=== PATIENT | female | born 2000 | race Two or more races ===

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

== ENCOUNTER 2021-10-04 08:31 | Observation (INO) | payer MEDICAID ==
[2021-10-04] MEDS ORDERED: PREN-96 PO (14:24)
== END 2021-10-04 14:36 | disposition home or self-care (01) ==
LOC: LDRP 13:30
PROVIDERS: ADMIT Obstetrics & Gynecology; ATTEND Obstetrics & Gynecology
DX: O24.419 Gestational diabetes mellitus in pregnancy, unspecified control (principal); Z3A.30 30 weeks gestation of pregnancy
CPT/HCPCS: 59025; 76818; 81002; 82948; 82962; 94760; G0378

== ENCOUNTER 2021-10-11 09:39 | Observation (INO) | payer MEDICAID ==
[~2021-10-11 09:39] MED LIST: PREN-96 PO
== END 2021-10-11 15:07 | disposition home or self-care (01) ==
LOC: LDRP 13:00
PROVIDERS: ADMIT Obstetrics & Gynecology; ATTEND Obstetrics & Gynecology
DX: O24.419 Gestational diabetes mellitus in pregnancy, unspecified control (principal); Z3A.31 31 weeks gestation of pregnancy
CPT/HCPCS: 59025; 76818; 81002; 82948; 82962; 94760; G0378

== ENCOUNTER 2021-10-17 08:10 | Observation (INO) | payer MEDICAID | END 2021-10-17 16:08 | disposition home or self-care (01) | LOC: LDRP 13:30 → UNDODISOB 16:08 | PROVIDERS: ADMIT Obstetrics & Gynecology; ATTEND Obstetrics & Gynecology | DX: O24.419 Gestational diabetes mellitus in pregnancy, unspecified control (principal); Z3A.31 31 weeks gestation of pregnancy | CPT/HCPCS: 59025; 76818; 81002; 82948; 82962; G0378 ==

== ENCOUNTER 2021-10-24 09:59 | Observation (INO) | payer MEDICAID | END 2021-10-24 17:00 | disposition home or self-care (01) | LOC: LDRP 14:00 | PROVIDERS: ADMIT Obstetrics & Gynecology; ATTEND Obstetrics & Gynecology | DX: O24.419 Gestational diabetes mellitus in pregnancy, unspecified control (principal); Z3A.32 32 weeks gestation of pregnancy | CPT/HCPCS: 59025; 76818; 81002; 82948; 82962; 94760; G0378 ==

== ENCOUNTER 2021-10-31 15:08 | Observation (INO) | payer MEDICAID | END 2021-11-07 15:10 | disposition home or self-care (01) | LOC: LDRP 11-07 13:00 | PROVIDERS: ADMIT Obstetrics & Gynecology; ATTEND Obstetrics & Gynecology | DX: O24.419 Gestational diabetes mellitus in pregnancy, unspecified control (principal); Z3A.34 34 weeks gestation of pregnancy | CPT/HCPCS: 59025; 76818; 81002; 82962; 94760; G0378 ==

== ENCOUNTER 2021-11-14 09:09 | Observation (INO) | payer MEDICAID | END 2021-11-14 14:59 | disposition home or self-care (01) | LOC: LDRP 12:55 | PROVIDERS: ADMIT Obstetrics & Gynecology; ATTEND Obstetrics & Gynecology | DX: O24.419 Gestational diabetes mellitus in pregnancy, unspecified control (principal); Z3A.35 35 weeks gestation of pregnancy | CPT/HCPCS: 59025; 76818; 81002; 82948; 82962; 94760; G0378 ==

== ENCOUNTER 2021-11-21 08:43 | Observation (INO) | payer MEDICAID ==
[~2021-11-21] VITALS: Ht 157.5 cm; Wt 80.3 kg
== END 2021-11-21 16:04 | disposition home or self-care (01) ==
LOC: LDRP 14:09
PROVIDERS: ADMIT Obstetrics & Gynecology; ATTEND Obstetrics & Gynecology
DX: O24.419 Gestational diabetes mellitus in pregnancy, unspecified control (principal); Z3A.36 36 weeks gestation of pregnancy
CPT/HCPCS: 59025; 76818; 81002; 82948; 82962; 94760; G0378

== ENCOUNTER 2021-11-28 07:12 | Observation (INO) | payer MEDICAID ==
[2021-11-28] MEDS ORDERED: LACTATED RINGER'S 1,000 ML IV ONE (14:00)
== END 2021-11-28 16:07 | disposition home or self-care (01) ==
LOC: LDRP 11:15
PROVIDERS: ADMIT Obstetrics & Gynecology; ATTEND Obstetrics & Gynecology
DX: O24.419 Gestational diabetes mellitus in pregnancy, unspecified control (principal); Z3A.37 37 weeks gestation of pregnancy
CPT/HCPCS: 59025; 76818; 81002; 82948; 82962; 94760; G0378; 96360

== ENCOUNTER 2021-11-29 07:14 | Observation (INO) | payer MEDICAID | END 2021-11-29 07:55 | disposition still patient (30) | LOC: LDRP 07:14 | PROVIDERS: ADMIT Obstetrics & Gynecology; ATTEND Obstetrics & Gynecology | DX: O24.419 Gestational diabetes mellitus in pregnancy, unspecified control (principal); Z3A.38 38 weeks gestation of pregnancy | CPT/HCPCS: 59025; 81002; 94760; G0378 ==

== ENCOUNTER 2021-12-05 13:00 | Observation (INO) | payer MEDICAID | END 2021-12-05 14:35 | disposition home or self-care (01) | LOC: LDRP 13:00 | PROVIDERS: ADMIT Obstetrics & Gynecology; ATTEND Obstetrics & Gynecology | DX: O24.419 Gestational diabetes mellitus in pregnancy, unspecified control (principal); Z3A.38 38 weeks gestation of pregnancy | CPT/HCPCS: 59025; 76818; 82948; 82962; 94760; G0378 ==

== ENCOUNTER 2021-12-12 10:37 | Observation (INO) | payer MEDICAID | END 2021-12-12 16:50 | disposition home or self-care (01) | LOC: LDRP 14:43 | PROVIDERS: ADMIT Obstetrics & Gynecology; ATTEND Obstetrics & Gynecology | DX: O24.419 Gestational diabetes mellitus in pregnancy, unspecified control (principal); O26.893 Other specified pregnancy related conditions, third trimester; N89.8 Other specified noninflammatory disorders of vagina; Z3A.39 39 weeks gestation of pregnancy | CPT/HCPCS: 59025; 76818; 81002; 82948; 82962; 94760; G0378 ==

== ENCOUNTER 2021-12-14 08:53 | Observation (INO) | payer MEDICAID | END 2021-12-14 10:50 | disposition home or self-care (01) | LOC: LDRP 09:00 | PROVIDERS: ADMIT Obstetrics & Gynecology; ATTEND Obstetrics & Gynecology | DX: O24.419 Gestational diabetes mellitus in pregnancy, unspecified control (principal); Z3A.40 40 weeks gestation of pregnancy | CPT/HCPCS: 59025; 76818; 81002; 82948; 82962; 94760; G0378 ==

== ENCOUNTER 2021-12-16 10:47 | Observation (INO) | payer MEDICAID | END 2021-12-16 13:55 | disposition home or self-care (01) | LOC: LDRP 10:47 | PROVIDERS: ADMIT Obstetrics & Gynecology; ATTEND Obstetrics & Gynecology | DX: O62.9 Abnormality of forces of labor, unspecified (principal); O48.0 Post-term pregnancy; Z3A.40 40 weeks gestation of pregnancy; Z79.899 Other long term (current) drug therapy | CPT/HCPCS: 59025; 76818; 81002; 82948; 82962; 94762; G0378 ==

== ENCOUNTER 2021-12-17 12:43 | Inpatient (IN) | payer MEDICAID ==
[~2021-12-17] VITALS: Ht 157.5 cm; Wt 80.3 kg
[2021-12-17] MEDS: ACCU-CHEK COMFORT CURVE STRIP VI SCH ×3 (07:00→22:02)
[2021-12-17] MEDS ORDERED: CARBOPROST TROMETHAMINE 250 MCG/1ML VIAL IM PRN (13:15)
[2021-12-17] MEDS ORDERED: OXYTOCIN 10UNIT/ML 1ML VIAL IM ONE (13:15)
[2021-12-17] MEDS ORDERED: LIDOCAINE 2%HCL (LOCAL ANESTH.) INJ 10ml MDV IJ PRN (13:15)
[2021-12-17] MEDS ORDERED: METHYLERGONOVINE MALEATE 0.2 MG/ML AMP IM PRN (13:15)
[2021-12-17] MEDS ORDERED: miSOPROStol 100 mcg TAB PR PRN (13:15)
[2021-12-17] MEDS ORDERED: OXYTOCIN 20 UNT in SODIUM CHLORIDE 0.9% 1,000 ML IV ONE (13:15)
[2021-12-17] MEDS ORDERED: DERMOPLAST 60ML BOTTLE TOP PRN (13:15)
[2021-12-17] MEDS ORDERED: miSOPROStol 100 mcg TAB SL PRN (13:15)
[2021-12-17] MEDS ORDERED: WITCH HAZEL-GLYCERIN PAD TOP PRN (13:15)
[2021-12-17] MEDS ORDERED: BUTORPHANOL TARTRATE 2 MG/1 ML VIAL IV PRN ×2 (13:15)
[2021-12-17] MEDS ORDERED: PROMETHAZINE HCL 25 MG/ML 1ML IV PRN (13:15)
[2021-12-17] MEDS ORDERED: PHISODERM TOP SOLN 240ML BTL TOP PRN (13:15)
[2021-12-17] MEDS ORDERED: TERBUTALINE SULFATE 1 MG/ML 1ML VIAL SC PRN (13:15)
[2021-12-17 14:21] LABS: Basophils # (auto) 0 10 ^3/uL (0-0.2); Basophils % (auto) 0.4 % (0.0-2.0); Eosinophils # (auto) 0.1 10 ^3/uL (0-0.8); Eosinophils % (auto) 1.5 % (0.0-7.0); Hematocrit 35.5 % (36.0-46.0); Hemoglobin 12.1 g/dL (12.2-16.2); Lymphocytes # (auto) 1.2 10 ^3/uL (0.4-5.4); Lymphocytes % (auto) 12.4 % (10.0-50.0); Mean Corpuscular Hgb Conc. 34.1 g/dL (32.0-36.0); Mean Corpuscular Volume 85.1 fL (80.0-100.0); Monocytes # (auto) 0.6 10 ^3/uL (0-1.3); Monocytes % (auto) 6.3 % (0.0-12.0); Neutrophils # (auto) 7.8 10 ^3/uL (1.6-8.6); Neutrophils % (auto) 79.4 % (37.0-80.0); Red Blood Cells 4.18 10^6/uL (4.0-5.20); Red Cell Distribution Width 14.4 % (11.8-14.3); White Blood Cell 9.8 10^3/uL (4.4-10.8)
[2021-12-17 14:30] LABS: Albumin 2.8 g/dL (3.4-5.0); Calcium 8.9 mg/dL (8.5-10.1)
[2021-12-17 14:35] LABS: BUN/Creatinine Ratio 18.5; Bilirubin, Total 0.2 mg/dL (0.2-1.0); Total Protein 6.9 g/dL (6.4-8.2)
[2021-12-17 14:38] LABS: INR 0.94 (0.9-1.15); Partial Thromboplastin Time 25.3 sec (23.6-33.0)
[2021-12-17 14:44] LABS: Alcohol, Urine < 3.0 mg/dL (0-10); Amphetamine Screen, Urine NEGATIVE (NEGATIVE); Barbiturate Scree,Urine NEGATIVE (NEGATIVE); Benzodiazephine Screen, Urine NEGATIVE (NEGATIVE); Cannabinoid Screen, Urine NEGATIVE (NEGATIVE); Cocaine Screen, Urine NEGATIVE (NEGATIVE); Opiate Scree,Urine NEGATIVE (NEGATIVE); Phencyclidine Screen, Urine NEGATIVE (NEGATIVE)
[2021-12-17] MEDS ORDERED: PENICILLIN G POT 5MIL/D5 50ML 50 ML IV ONE (15:15)
[2021-12-17] MEDS: LACTATED RINGER'S 1,000 ML IV SCH ×2 (15:22→22:59)
[2021-12-17 17:22] LABS: Urine Specific Gravity 1.035 (1.001-1.035)
[2021-12-17 17:23] LABS: Urine Blood Negative /uL (Negative)
[2021-12-17 17:28] LABS: Urine WBC 0-10 /hpf (0 - 5)
[2021-12-17 17:29] LABS: Urine WBC Clumps None Seen /hpf (None Seen)
[2021-12-17 17:30] LABS: Urine Bacteria 1+ /hpf (None Seen); Urine Mucus MODERATE (None Seen)
[2021-12-17] MEDS ORDERED: miSOPROStol 50 MCG per PRE-CUT 1/2 TAB PO PRN (17:55)
[2021-12-17] MEDS: PENICILLIN G POTASSIUM 2,500,000 UNITS in D5W 5% 50 ML IV SCH ×2 (19:03→23:25)
[2021-12-18] MEDS: ACCU-CHEK COMFORT CURVE STRIP VI SCH ×6 (02:34→22:00)
[2021-12-18] MEDS: LACT. RINGERS/OXYTOCIN 20UNITS 1,000 ML IV SCH ×3 (03:41→12:19)
[2021-12-18] MEDS: PENICILLIN G POTASSIUM 2,500,000 UNITS in D5W 5% 50 ML IV SCH ×3 (04:48→14:51)
[2021-12-18] MEDS ORDERED: ePHEDrine SULFATE 50 MG/ML AMP IV ONE (07:00)
[2021-12-18] MEDS ORDERED: LACTATED RINGER'S 1,000 ML IV ONE (07:00)
[2021-12-18] MEDS ORDERED: LIDOCAINE HCL 2 %PF INJ 10ML AMP IJ ONE ×3 (07:00→19:00)
[2021-12-18] MEDS ORDERED: fentaNYL CITRATE 100 MCG/2 ML VL IV ONE (07:00)
[2021-12-18] MEDS ORDERED: NALOXONE HCL 0.4 MG/ML VIAL IV ONE (07:00)
[2021-12-18] MEDS ORDERED: ROPIVACAINE HCL 200 ML EPI SCH (07:00)
[2021-12-18] MEDS ORDERED: D5W/LACTATED RINGERS 1,000 ML IV ONE (07:45)
[2021-12-18] MEDS: ACETAMINOPHEN 325 MG TAB PO PRN (12:42)
[2021-12-18] MEDS ORDERED: SODIUM CHLORIDE 0.9% 1,000 ML IUPC SCH (14:30)
[2021-12-18] MEDS ORDERED: SODIUM CHLORIDE 0.9% 300 ML IUPC ONE (14:30)
[2021-12-18] MEDS ORDERED: TRANEXAMIC ACID 10 ML ONE (16:23)
[2021-12-18] MEDS ORDERED: ceFAZolin 1GM/50ML 50 ML IV ONE ×2 (16:30→21:15)
[2021-12-18 17:01] LABS: Basophils # (auto) 0.1 10 ^3/uL (0-0.2); Basophils % (auto) 0.5 % (0.0-2.0); Eosinophils # (auto) 0.1 10 ^3/uL (0-0.8); Eosinophils % (auto) 0.9 % (0.0-7.0); Hematocrit 38.1 % (36.0-46.0); Hemoglobin 12.3 g/dL (12.2-16.2); Lymphocytes # (auto) 1.5 10 ^3/uL (0.4-5.4); Lymphocytes % (auto) 12.4 % (10.0-50.0); Mean Corpuscular Hemoglobin 27.7 pg (28.0-32.0); Mean Corpuscular Hgb Conc. 32.3 g/dL (32.0-36.0); Mean Corpuscular Volume 85.7 fL (80.0-100.0); Monocytes # (auto) 0.7 10 ^3/uL (0-1.3); Monocytes % (auto) 6.2 % (0.0-12.0); Neutrophils # (auto) 9.4 10 ^3/uL (1.6-8.6); Nucleated Red Blood Cells % 0.1 %; Red Blood Cells 4.45 10^6/uL (4.0-5.20); Red Cell Distribution Width 14.7 % (11.8-14.3); White Blood Cell 11.7 10^3/uL (4.4-10.8)
[2021-12-18 17:12] LABS: Albumin 2.7 g/dL (3.4-5.0); BUN/Creatinine Ratio 7.3; Calcium 8.5 mg/dL (8.5-10.1); Potassium 4.2 mmol/L (3.5-5.1)
[2021-12-18 17:15] LABS: Bilirubin, Total 0.3 mg/dL (0.2-1.0); Total Protein 6.5 g/dL (6.4-8.2)
[2021-12-18 17:36] LABS: INR 0.95 (0.9-1.15); Partial Thromboplastin Time 26.2 sec (23.6-33.0)
[2021-12-18] MEDS ORDERED: MORPHINE SULF PF 5 MG/10 ML VIAL ONE (18:18)
[2021-12-18] MEDS ORDERED: SODIUM BICARBONATE 8.4 % INJ 50ML VIAL IV ONE (18:20)
[2021-12-18] MEDS ORDERED: ONDANSETRON HCL 4 MG/2 ML VIAL ONE (18:20)
[2021-12-18] MEDS ORDERED: oxyTOCIN 10 UNIT/ML 10ML VIAL ONE (18:20)
[2021-12-18] MEDS ORDERED: fentaNYL CITRATE 100 MCG/2 ML VL ONE (18:20)
[2021-12-18] MEDS ORDERED: SODIUM CHLORIDE LOCK 10 ML ONE (18:20)
[2021-12-18] MEDS ORDERED: MIDAZOLAM HCL 2MG/2ML 2ml VIAL (1mg/ml) ONE (18:20)
[2021-12-18] MEDS ORDERED: EPINEPHrine HCL 1 MG/1 ML AMP ONE (18:20)
[2021-12-18] MEDS ORDERED: DexAMETHasone SOD PHOS 10MG/1ML VIAL INJ ONE (19:05)
[2021-12-18 20:00] VITALS: BP 126/81
[2021-12-18] MEDS ORDERED: HYDROmorphone HCL 2 MG/ML VL/or syr IV PRN (20:45)
[2021-12-18] MEDS ORDERED: NALOXONE HCL 0.4 MG/ML VIAL IV PRN (20:45)
[2021-12-18] MEDS ORDERED: METOCLOPRAMIDE HCL 5MG/ml INJ 2ml VIAL IV PRN (20:45)
[2021-12-18] MEDS ORDERED: diphenhdrAMINE HCL 50 MG/1 ML VL IV PRN (20:45)
[2021-12-18] MEDS ORDERED: MORPHINE SULFATE 4 MG/ML SYR/VIAL IV PRN ×2 (20:45→21:15)
[2021-12-18 21:00] VITALS: BP 126/81
[2021-12-18] MEDS ORDERED: GUM (CHEWING) 1 GUM CHEW CHEW ONE (21:15)
[2021-12-18] MEDS ORDERED: KETOROLAC TROMETH 30 MG/ML 1ML VIAL IV PRN (21:15)
[2021-12-18] MEDS ORDERED: SIMETHICONE 80 MG CHEWABLE TABLET PO PRN (21:15)
[2021-12-18] MEDS ORDERED: ONDANSETRON HCL 4 MG/2 ML VIAL IV PRN (21:15)
[2021-12-18] MEDS ORDERED: ePHEDrine SULFATE 50 MG/ML AMP IV PRN (21:15)
[2021-12-18] MEDS: DOCUSATE SOD 100 MG CAP PO SCH (21:58)
[2021-12-18 22:00] VITALS: BP 123/80
[2021-12-18 23:00] VITALS: BP 112/66
[2021-12-19] VITALS (24 sets, daily range): BP systolic 96–121; BP diastolic 45–77
[2021-12-19] MEDS: ACCU-CHEK COMFORT CURVE STRIP VI SCH ×3 (02:00→10:00)
[2021-12-19] MEDS: IBUPROFEN 600 MG TAB PO SCH ×4 (06:00→23:54)
[2021-12-19] MEDS ORDERED: HYDROcodone-ACET 5/325MG TAB PO PRN (06:00)
[2021-12-19 06:54] LABS: Basophils # (auto) 0.1 10 ^3/uL (0-0.2); Basophils % (auto) 0.4 % (0.0-2.0); Eosinophils # (auto) 0 10 ^3/uL (0-0.8); Hematocrit 27.9 % (36.0-46.0); Hemoglobin 9.5 g/dL (12.2-16.2); Lymphocytes # (auto) 1.1 10 ^3/uL (0.4-5.4); Mean Corpuscular Hemoglobin 29.1 pg (28.0-32.0); Mean Corpuscular Hgb Conc. 34.3 g/dL (32.0-36.0); Monocytes # (auto) 0.7 10 ^3/uL (0-1.3); Monocytes % (auto) 4.1 % (0.0-12.0); Neutrophils # (auto) 15.8 10 ^3/uL (1.6-8.6); Neutrophils % (auto) 89.5 % (37.0-80.0); Red Blood Cells 3.28 10^6/uL (4.0-5.20); Red Cell Distribution Width 14.5 % (11.8-14.3); White Blood Cell 17.7 10^3/uL (4.4-10.8)
[2021-12-19] MEDS ORDERED: ROPIVACAINE HCL 200 ML EPI SCH (07:00)
[2021-12-19] MEDS ORDERED: FERROUS SULFATE 325mg EC TAB PO ONE (07:45)
[2021-12-19 08:06] LABS: RPR Non Reactive (Non Reactive)
[2021-12-19] MEDS ORDERED: HYDROmorphone HCL 2 MG/ML VL/or syr ONE (09:13)
[2021-12-19] MEDS: HYDROcodone-ACET 5/325MG TAB PO PRN ×3 (10:38→21:41)
[2021-12-19] MEDS: DOCUSATE SOD 100 MG CAP PO SCH (21:33)
[2021-12-20 03:00] VITALS: BP 96/42
[2021-12-20] MEDS: HYDROcodone-ACET 5/325MG TAB PO PRN ×4 (04:17→13:54)
[2021-12-20] MEDS: IBUPROFEN 600 MG TAB PO SCH ×3 (05:50→18:08)
[2021-12-20] MEDS ORDERED: ACCU-CHEK COMFORT CURVE STRIP VI ONE (06:00)
[2021-12-20 07:00] VITALS: BP 107/67
[2021-12-20] MEDS ORDERED: DOCU-94 PO (07:15)
[2021-12-20] MEDS ORDERED: IBUP800T27 PO (07:15)
[2021-12-20] MEDS ORDERED: HYDR-4902 PO (07:15)
[2021-12-20 10:57] VITALS: BP 111/61
[2021-12-20 15:00] VITALS: BP 112/62
[2021-12-20 19:00] VITALS: BP 96/49
[2021-12-20] MEDS: DOCUSATE SOD 100 MG CAP PO SCH (22:16)
[2021-12-20] MEDS: ACETAMINOPHEN 325 MG TAB PO PRN (22:20)
[2021-12-20 22:31] VITALS: BP 120/70
[2021-12-21] MEDS: IBUPROFEN 600 MG TAB PO SCH ×2 (00:03→05:33)
[2021-12-21 02:40] VITALS: BP 102/58
[2021-12-21 07:00] VITALS: BP 134/72
[2021-12-21 08:20] VITALS: BP 134/72
[2021-12-21 09:09] VITALS: BP 134/72
== END 2021-12-21 10:13 | disposition home or self-care (01) | DRG 540 ==
LOC: LDRP 12:43
PROVIDERS: ADMIT Obstetrics & Gynecology; ATTEND Obstetrics & Gynecology
PROC: 10D00Z1 Extraction of Products of Conception, Low, Open Approach (ICD-10-PCS; principal; 2021-12-18 19:21)
DX: O24.429 Gestational diabetes mellitus in childbirth, unspecified control (principal); O76 Abnormality in fetal heart rate and rhythm complicating labor and delivery; Z20.822 Contact with and (suspected) exposure to COVID-19; O99.824 Streptococcus B carrier state complicating childbirth; Z3A.40 40 weeks gestation of pregnancy; Z37.0 Single live birth
CPT/HCPCS: 36415; 59025; 62282; 80053; 80307; 81001; 82948; 82962; 85025; 85610; 85730; 86592; 86850; 86900; 86901; 94760; 96360; 96361; 96365; 96366; G0378; J0171; J0690; J1100; J2001; J2250; J2405; J2540; J2590; J7060

== ENCOUNTER 2021-12-27 16:27 | Emergency (ER) | payer MEDICAID ==
[~2021-12-27] VITALS: Ht 157.5 cm; Wt 71.2 kg
[~2021-12-27 16:27] MED LIST changes: +DOCU-94 PO; +HYDR-4902 PO; +IBUP800T27 PO
[2021-12-27] MEDS ORDERED: METOCLOPRAMIDE HCL 5MG/ml INJ 2ml VIAL IV ONE (20:15)
[2021-12-27] MEDS ORDERED: SODIUM CHLORIDE 0.9% 1,000 ML IV ONE (20:15)
[2021-12-27 20:52] LABS: Eosinophils # (auto) 0.2 10 ^3/uL (0-0.8); Mean Corpuscular Volume 85.5 fL (80.0-100.0)
[2021-12-27 20:54] LABS: Basophils # (auto) 0.1 10 ^3/uL (0-0.2); Basophils % (auto) 0.5 % (0.0-2.0); Eosinophils % (auto) 1.3 % (0.0-7.0); Hematocrit 30.5 % (36.0-46.0); Hemoglobin 10.3 g/dL (12.2-16.2); Lymphocytes # (auto) 1.3 10 ^3/uL (0.4-5.4); Lymphocytes % (auto) 10.9 % (10.0-50.0); Mean Corpuscular Hemoglobin 28.8 pg (28.0-32.0); Mean Corpuscular Hgb Conc. 33.7 g/dL (32.0-36.0); Monocytes # (auto) 0.7 10 ^3/uL (0-1.3); Monocytes % (auto) 5.5 % (0.0-12.0); Neutrophils # (auto) 10.1 10 ^3/uL (1.6-8.6); Neutrophils % (auto) 81.8 % (37.0-80.0); Red Blood Cells 3.57 10^6/uL (4.0-5.20); Red Cell Distribution Width 14.4 % (11.8-14.3); White Blood Cell 12.4 10^3/uL (4.4-10.8)
[2021-12-27 21:08] LABS: BUN/Creatinine Ratio 9.7; Calcium 8.8 mg/dL (8.5-10.1); Potassium 4.1 mmol/L (3.5-5.1)
[2021-12-27] MEDS ORDERED: [UNRECOGNIZED DRUG - CODE] PO (22:22)
[2021-12-27 22:40] VITALS: BP 118/74
[2021-12-27] MEDS ORDERED: ACETAMINOPHEN 325 MG TAB PO ONE (22:45)
== END 2021-12-27 22:56 | disposition home or self-care (01) ==
LOC: ER 16:27
DX: R51.9 Headache, unspecified (principal)
CPT/HCPCS: 36415; 80048; 83605; 85025; 96361; 96374; 99283; J2765; J7030

== ENCOUNTER 2021-12-29 08:48 | Day surgery (SDC) | payer MEDICAID ==
[~2021-12-29 08:48] MED LIST changes: +[UNRECOGNIZED DRUG - CODE] PO
[2021-12-29] MEDS ORDERED: MIDAZOLAM HCL 2MG/2ML 2ml VIAL (1mg/ml) ONE (09:31)
[2021-12-29] MEDS ORDERED: ONDANSETRON HCL 4 MG/2 ML VIAL ONE (09:31)
[2021-12-29] MEDS ORDERED: fentaNYL CITRATE 100 MCG/2 ML VL ONE (09:31)
[2021-12-29] MEDS ORDERED: KETOROLAC TROMETH 30 MG/ML 1ML VIAL ONE (10:18)
[2021-12-30] MEDS ORDERED: ROCURONIUM 10MG/ML 10ML VIAL IV ONE (18:17)
[2021-12-30] MEDS ORDERED: MIDAZOLAM HCL 2MG/2ML 2ml VIAL (1mg/ml) ONE (18:17)
== END 2021-12-29 11:00 | disposition home or self-care (01) ==
LOC: SUR 08:48
PROVIDERS: ATTEND Anesthesiology
DX: G97.1 Other reaction to spinal and lumbar puncture (principal)
CPT/HCPCS: 62273; J1885; J2250; J2405; J3010

== ENCOUNTER 2021-12-30 17:20 | Day surgery (SDC) | payer MEDICAID ==
[~2021-12-30] VITALS: Ht 157.5 cm; Wt 70.8 kg
[2021-12-30 17:30] VITALS: BP 111/60
[2021-12-30] MEDS ORDERED: LACTATED RINGER'S 1,000 ML IV SCH (17:30)
[2021-12-30] MEDS ORDERED: MIDAZOLAM HCL 2MG/2ML 2ml VIAL (1mg/ml) IM ONE (18:45)
[2021-12-30] MEDS ORDERED: KETOROLAC TROMETH 30 MG/ML 1ML VIAL IV ONE (19:30)
[2021-12-30] MEDS ORDERED: KETOROLAC TROMETH 30 MG/ML 1ML VIAL ONE (20:26)
[2021-12-30 21:35] LABS: Basophils # (auto) 0.1 10 ^3/uL (0-0.2); Basophils % (auto) 0.7 % (0.0-2.0); Eosinophils # (auto) 0.2 10 ^3/uL (0-0.8); Eosinophils % (auto) 2.7 % (0.0-7.0); Hematocrit 26.8 % (36.0-46.0); Lymphocytes # (auto) 2.3 10 ^3/uL (0.4-5.4); Lymphocytes % (auto) 25.3 % (10.0-50.0); Mean Corpuscular Hemoglobin 28.3 pg (28.0-32.0); Mean Corpuscular Hgb Conc. 33.6 g/dL (32.0-36.0); Mean Corpuscular Volume 84.2 fL (80.0-100.0); Monocytes # (auto) 0.6 10 ^3/uL (0-1.3); Monocytes % (auto) 6.9 % (0.0-12.0); Neutrophils % (auto) 64.4 % (37.0-80.0); Nucleated Red Blood Cells % 0.1 %; Red Blood Cells 3.19 10^6/uL (4.0-5.20); Red Cell Distribution Width 14.4 % (11.8-14.3); White Blood Cell 9.3 10^3/uL (4.4-10.8)
[2021-12-30 23:27] LABS: Urine Bacteria NONE SEEN /hpf (None Seen); Urine Blood TRACE /uL (Negative); Urine Specific Gravity 1.012 (1.001-1.035); Urine WBC 33 /hpf (0 - 5)
== END 2021-12-31 01:29 | disposition home or self-care (01) ==
LOC: ER 17:20 → EDSTATUS 20:31 → PREINTOOBSV 21:07 → ER 12-31 01:29
PROVIDERS: ATTEND Anesthesiology
DX: G97.1 Other reaction to spinal and lumbar puncture (principal)
CPT/HCPCS: 36415; 81001; 85025; 96374; 96375; 99284; J1200; J1885; J2250; J2765

== ENCOUNTER 2022-01-03 15:06 | Emergency (ER) | payer MEDICAID ==
[~2022-01-03] VITALS: Ht 157.5 cm; Wt 68.9 kg
[2022-01-03 15:11] VITALS: BP 129/66
[2022-01-03 16:35] LABS: Basophils # (auto) 0.1 10 ^3/uL (0-0.2); Eosinophils # (auto) 0.2 10 ^3/uL (0-0.8); Hematocrit 33.2 % (36.0-46.0); Lymphocytes # (auto) 1.7 10 ^3/uL (0.4-5.4); Monocytes # (auto) 0.4 10 ^3/uL (0-1.3); Nucleated Red Blood Cells % 0.1 %; Red Blood Cells 3.96 10^6/uL (4.0-5.20); Red Cell Distribution Width 14.6 % (11.8-14.3)
[2022-01-03 16:37] LABS: Basophils % (auto) 1.2 % (0.0-2.0); Eosinophils % (auto) 2.6 % (0.0-7.0); Hemoglobin 11.1 g/dL (12.2-16.2); Mean Corpuscular Hemoglobin 28.1 pg (28.0-32.0); Mean Corpuscular Hgb Conc. 33.5 g/dL (32.0-36.0); Mean Corpuscular Volume 83.8 fL (80.0-100.0); Monocytes % (auto) 6.4 % (0.0-12.0); Neutrophils # (auto) 4.5 10 ^3/uL (1.6-8.6); Neutrophils % (auto) 65.8 % (37.0-80.0); White Blood Cell 6.9 10^3/uL (4.4-10.8)
[2022-01-03 16:47] LABS: Albumin 3.6 g/dL (3.4-5.0); Anion Gap 8 (5-15); Blood Alcohol < 3.0 mg/dL (0-5); Blood Urea Nitrogen 6 mg/dL (7-18); Calcium 8.7 mg/dL (8.5-10.1); Carbon Dioxide 23 mmol/L (21-32); Chloride 111 mmol/L (98-107); Glucose 79 mg/dL (74-106); Potassium 3.7 mmol/L (3.5-5.1); Sodium 142 mmol/L (136-145)
[2022-01-03 16:50] LABS: Alanine Aminotransferase 21 U/L (13-56); Alkaline Phosphatase 102 U/L (45-117); Aspartate Aminotransferase 11 U/L (15-37); BUN/Creatinine Ratio 9.2; Bilirubin, Total 0.3 mg/dL (0.2-1.0); GFR African American 149 mL/min; GFR Non-African American 124 mL/min; Total Protein 7.8 g/dL (6.4-8.2)
[2022-01-03 18:05] LABS: Urine Bacteria NONE SEEN /hpf (None Seen); Urine Blood 3+ /uL (Negative); Urine Specific Gravity 1.018 (1.001-1.035); Urine WBC 97 /hpf (0 - 5)
[2022-01-03 18:13] LABS: Salicylate < 1.7 mg/dL (2.8-20.0)
[2022-01-03 18:14] LABS: Acetaminophen < 2.0 ug/mL (10-30)
== END 2022-01-03 19:53 | disposition home or self-care (01) ==
LOC: ER 15:06
DX: O99.345 Other mental disorders complicating the puerperium (principal); F53.0 Postpartum depression
CPT/HCPCS: 36415; 71045; 80053; 80320; 80329; 81001; 81025; 84443; 85025